=== PATIENT | female | born 1950 | race Caucasian/White ===

== ENCOUNTER 2016-09-30 08:52 | Emergency (ER) | payer OTHER ==
[~2016-09-30] VITALS: Ht 152.4 cm; Wt 62.0 kg
[~2016-09-30 08:52] MED LIST: CLON-379 PO; DOCU-144 PO; HYDR-3671 PO; METF500T9 PO
[2016-09-30 08:54] VITALS: Ht 152.4 cm; Wt 62.0 kg
[2016-09-30] MEDS ORDERED: D-ME473S18 PO (09:36)
[2016-09-30] MEDS ORDERED: POLY10DR19 BOTH EYES (09:36)
[2016-09-30] MEDS ORDERED: AZIT250T94 PO (09:36)
--- NOTE | 2016-09-30 09:42 | ERD ---
ER Documentation Chief Complaint Date/Time DATE: 09/30/16 TIME: 09:40 Chief Complaint pt bib self with c/o sore throat and ear pain x 8 days HPI This is a 66-year-old female presents to the ER with cough, sore throat, headache, eye discharge for the last 8 days. Patient denies any fevers or chills patient denies any chest pain shortness of breath. Patient has been trying [id number] cough and cold medication however has not worked. ROS 12 point review of systems was done, all negative except per HPI. Medications Home Meds Active Scripts Dextromethorphan Hb-Promethazine Hcl (Promethazine DM Syrup) 473 Ml Syrup, 5 ML PO Q6H Y for COUGH, #4 OZ Prov:ULISSES DANIEL 09/30/16 Polymyxin B Sulfate-TMP* (Polymyxin B-TMP Eye Drops*) 10 Ml Drops, 1 DROP BOTH EYES QID for 7 Days, EA Prov:ULISSES DANIEL 09/30/16 Azithromycin* (Zithromax*) 250 Mg Tablet, 250 MG PO .ZPACK DIRECTED, #6 TAB TAKE 500 MG (2 TABS) THE FIRST DAY THEN 250 MG (1 TAB) DAYS 2-5 Prov:ULISSES DANIEL 09/30/16 Clonidine Hcl* (Clonidine Hcl*) 0.1 Mg Tab, 0.1 MG PO Q6H Y for ELEVATED BLOOD PRESSURE for 14 Days, TAB Prov:TAYLOR REED 03/31/16 Docusate Sodium* (Colace*) 100 Mg Capsule, 100 MG PO BID for 30 Days, CAP Prov:TAYLOR REED 03/31/16 Hydralazine Hcl* (Hydralazine Hcl*) 25 Mg Tab, 25 MG PO TID for 30 Days, TAB Prov:LATHAETAYLOR RIGGS 03/31/16 Reported Medications Metformin Hcl (Metformin Hcl ER) 500 Mg Tab.er.24h, 500 MG PO BID, TAB.SA 03/31/15 Allergies Allergies: Coded Allergies: No Known Allergies (Verified Allergy, Unknown, 03/26/16) PMhx/Soc History of Surgery: Yes (hysterectomy, left eye surgery, right eye surgery) Anesthesia Reaction: No Hx Neurological Disorder: No Hx Respiratory Disorders: No Hx Cardiac Disorders: Yes (htn) Hx Psychiatric Problems: No Hx Miscellaneous Medical Probl: No Hx Alcohol Use: Yes (occasional) Hx Substance Use: No Hx Tobacco Use: No Smoking Status: Never smoker Physical Exam Vitals Vital Signs Date Time Temp Pulse Resp B/P Pulse Ox O2 Delivery O2 Flow Rate FiO2 09/30/16 08:54 98.9 76 18 142/70 98 Physical Exam GENERAL: The patient is well-developed, well-nourished, in no acute distress. NECK: Cervical spine is non tender with no step off. Supple, no nuchal rigidity HEENT: Atraumatic. Pupils equal, round and reactive to light. Extraocular muscles are grossly intact. Conjunctivae pink, no discharge. Bilateral tympanic membranes are clear with no evidence of erythema, effusion or dulling of the light reflex. Tonsilar erythema with no exudates or uvular deviation. Clear rhinorrhea. RESPIRATORY: Clear to auscultation bilaterally. There are no rales, wheezes or rhonchi. HEART: Regular rate and rhythm. No murmurs, clicks, rubs or gallops. EXTREMITIES: No clubbing or cyanosis. Full range of motion. Grossly neurovascularly intact. NEUROLOGIC: Alert and oriented. Cranial nerves II through XII are intact. SKIN: There is no rash. The skin is warm and dry. Procedures/MDM Differential diagnosis includes but is not limited to; Viral URI, allergic rhinitis, bronchitis, pertussis,pneumonia. Patient likely has an upper respiratory infection, second length of symptoms is very should be treated with antibiotics. Clinical suspicion for pneumonia is low as patient appears well, is not hypoxic or in any respiratory distress. Suspicion for strep throat, retropharyngeal abscess, peritonsillar abscess is low. I doubt acute CO, pneumothorax, pulmonary embolism as she has not complained of any chest pain or shortness of breath. Additionally, patients physical examination is benign. Plan was discussed with patient they understand and agree. Patient needs to follow up with PCP in 1-2 days or return to ER sooner if symptoms worsen. Departure Diagnosis: Primary Impression: Upper respiratory infection Condition: Stable Patient Instructions: Preventing Common Respiratory Infections Additional Instructions: Llame al doctor MAANA y alistair khalida SHALA PARA DENTRO DE 1-2 SANTANA.Dgale a la secretaria que nosotros le instruimos hacer esta shala.Avise o llame si castillo condicin se empeora antes de la shala. Regresa aqui si peor o no mejor. ULISSES DANIEL Sep 30, 2016 09:42
== END 2016-09-30 09:50 | disposition home or self-care (01) ==
LOC: FTE 08:52
DX: J06.9 Acute upper respiratory infection, unspecified (principal); I10 Essential (primary) hypertension; E11.9 Type 2 diabetes mellitus without complications; Z79.84 Long term (current) use of oral hypoglycemic drugs
CPT/HCPCS: 99284

== ENCOUNTER 2017-12-31 18:43 | Inpatient (IN) | END 2018-01-06 18:55 | disposition home or self-care (01) | DRG 669 ==